=== PATIENT | male | born 1960 | race Caucasian/White ===

== ENCOUNTER 2017-09-17 15:26 | Emergency (ER) | payer OTHER ==
[~2017-09-17] VITALS: Ht 167.6 cm; Wt 73.6 kg
[2017-09-17 15:32] VITALS: Ht 167.6 cm; Wt 73.6 kg
[2017-09-17] MEDS ORDERED: LATUDA40 MG PO (15:34)
[2017-09-17] MEDS ORDERED: LAMICTAL200 MG PO (15:34)
[2017-09-17] MEDS ORDERED: MYSOLINE 50 MG50 MG PO (15:35)
[2017-09-17 17:45] LABS: BASOPHILS 0.2 % (0-2); EOSINOPHILS 0.4 % (0-7); HEMATOCRIT 42.7 % (42.0-54.0); HEMOGLOBIN 15.1 g/dL (13.5-17.5); IMMATURE GRANULOCYTES 0.2 % (0-5); LYMPHOCYTES 18.8 % (15-50); MCH 31.4 pg (26.0-34.0); MCHC 35.4 g/dL (31.0-37.0); MCV 88.8 fL (80.0-100.0); MEAN PLATELET VOLUME 9.7 fL (7.4-10.4); MONOCYTES 6.5 % (2-11); NEUTROPHILS 73.9 % (40-80); PLATELET COUNT 197 10x3/uL (130-400); RBC 4.81 10x6/uL (4.20-6.10); RDW 12.9 % (11.5-14.5); WBC 9.3 10x3/uL (4.8-10.8)
[2017-09-17 18:06] LABS: ANION GAP 12.1 mmol/L (8-16); BILIRUBIN - TOTAL 0.33 mg/dL (0.2-1.3); CALCIUM 8.7 mg/dL (8.5-10.1); CARBON DIOXIDE 28.8 mmol/L (21.0-32.0); CREATININE - SERUM 1.1 mg/dL (0.6-1.3); POTASSIUM - SERUM 4.9 mmol/L (3.5-5.1); PROTEIN - SERUM 7.3 g/dL (6.4-8.2)
[2017-09-17 19:13] VITALS: BP 102/65
== END 2017-09-17 19:13 | disposition home or self-care (01) ==
LOC: D.ER 15:26
PROVIDERS: Family Medicine
DX: I95.9 Hypotension, unspecified (principal); R42 Dizziness and giddiness; F17.200 Nicotine dependence, unspecified, uncomplicated